=== PATIENT | female | born 1990 | race Asian ===

== ENCOUNTER → 2018-02-16 12:37 | Outpatient (CLI) | payer OTHER, SELFPAY ==
--- NOTE | 2018-02-16 12:40 | DI.RAD.S_ITS ---
PROCEDURE: XR LUMBAR SPINE 2-3V INDICATIONS: NECK AND BACK PAIN TECHNIQUE: 5 views of the lumbar spine were acquired. COMPARISON: None. FINDINGS: Bones: 5 [id number] vertebrae are present. There is normal bony alignment. No vertebral body compression fractures. No suspicious bony lesions. The T12 ribs appear diminutive bilaterally. Soft tissues: Overlying bowel gas pattern is normal. No suspicious soft tissue calcifications. IMPRESSION: No acute osseous abnormality of the lumbar spine. Dictated by: Mike Sneed [facility] Interpreted: Gera Kerr MD on 02/16/2018 at 14:11 Approved by: Gera Kerr M.D. on 02/16/2018 at 21:28
--- NOTE | 2018-02-16 12:40 | DI.RAD.S_ITS ---
PROCEDURE: XR CERVICAL SPINE 2V OR 3V INDICATIONS: NECK AND BACK PAIN TECHNIQUE: 3 view(s) of the cervical spine were acquired. COMPARISON: None. FINDINGS: Bones: No fractures or dislocations to the C7 level. The lateral masses of C1 appear intact on the odontoid view. No suspicious bony lesions. Loss of cervical lordosis which could be related to muscle spasm, rigidity or simply positional. Soft tissues: No prevertebral soft tissue swelling. IMPRESSION: Loss of cervical lordosis which could be related to muscle spasm, rigidity or simply positional. Otherwise, no acute osseous abnormality of the cervical spine is identified. Dictated by: Mike Sneed [facility] Interpreted: Gera Kerr MD on 02/16/2018 at 14:14 Approved by: Gera Kerr M.D. on 02/16/2018 at 21:26
== END ==
PROVIDERS: PCP Family Medicine; Visit Provider Family Medicine
DX: M54.2 Cervicalgia (principal); M54.9 Dorsalgia, unspecified
CPT/HCPCS: 72040; 72100